=== PATIENT | female | born 1975 | race Caucasian/White ===

== ENCOUNTER 2019-05-10 21:26 | Emergency (ER) | payer MEDICAID ==
[~2019-05-10] VITALS: Ht 160 cm; Wt 49.9 kg
[~2019-05-10 21:26] MED LIST: AMIT100T2 PO; BACL20TA PO; ERGO400T7 PO; ETOD400T PO; GLIM4TAB4 PO; LISI-607 PO; MELO-107 PO; METF-440 PO; TRAM50TA2 PO
[2019-05-10 21:37] VITALS: BP 112/71
--- NOTE | 2019-05-10 21:46 | NUR ---
KOURTNEY OLIVER (DAUGHTER) [phone]
--- NOTE | 2019-05-10 22:11 | NUR ---
FAMILY AT BEDSIDE
== END 2019-05-10 22:57 | disposition home or self-care (01) ==
LOC: ER 21:30
DX: F29 Unspecified psychosis not due to a substance or known physiological condition (principal); R45.86 Emotional lability; F41.9 Anxiety disorder, unspecified; G40.909 Epilepsy, unspecified, not intractable, without status epilepticus; E11.9 Type 2 diabetes mellitus without complications; R00.0 Tachycardia, unspecified; Z88.0 Allergy status to penicillin; Z79.899 Other long term (current) drug therapy